=== PATIENT | male | born 1950 | race Caucasian/White ===

== ENCOUNTER 2016-06-02 15:47 | Outpatient (CLI) | payer MEDICARE, OTHER | END 2016-06-02 15:48 | disposition home or self-care (01) | DX: I48.91 Unspecified atrial fibrillation (principal) ==

== ENCOUNTER 2016-06-02 16:35 | Outpatient (CLI) | payer MEDICARE, OTHER ==
[2016-06-02 17:05] LABS: CALCIUM 8.5 mg/dL (8.5-10.3); CREATININE 0.8 mg/dL (0.6-1.2); POTASSIUM 3.9 mmol/L (3.5-5.0)
== END 2016-06-02 16:36 | disposition home or self-care (01) ==
LOC: LAB 16:35
PROVIDERS: ATTEND Internal Medicine Cardiovascular Disease
DX: I48.91 Unspecified atrial fibrillation (principal)
CPT/HCPCS: 36415; 80048

== ENCOUNTER 2017-05-26 07:04 | Outpatient (CLI) | payer MEDICARE, OTHER ==
[2017-05-26 10:51] LABS: BASOPHILS % (AUTO) 0.5 %; EOSINOPHILS # (AUTO) 0.1 10^3/uL (0.0-0.7); EOSINOPHILS % (AUTO) 1.3 %; HGB - HEMOGLOBIN 15.5 g/dL (14.0-18.0); LYMPHOCYTES # (AUTO) 1.8 10^3/uL (1.5-3.5); MEAN CORPUSCULAR HEMOGLOBIN 31.5 pg (27.0-31.0); MEAN CORPUSCULAR HGB CONC 32.8 g/dL (32.0-36.0); MEAN CORPUSCULAR VOLUME 96.1 fL (80.0-94.0); MONOCYTES # (AUTO) 0.6 10^3/uL (0.0-1.0); MONOCYTES % (AUTO) 7.7 %; NEUTROPHILS # (AUTO) 5.7 10^3/uL (1.5-6.6); NEUTROPHILS % (AUTO) 68.5 %; PLT - PLATELET COUNT 198 10^3/uL (130-450); RED BLOOD COUNT 4.92 10^6/uL (4.70-6.10); RED CELL DISTRIBUTION WIDTH 13.5 % (12.0-15.0); WHITE BLOOD COUNT 8.3 x10^3/uL (4.8-10.8)
[2017-05-26 11:06] LABS: ALBUMIN/GLOBULIN RATIO 1.2 (1.0-2.2); ALKALINE PHOSPHATASE 50 IU/L (42-121); ALT ALANINE AMINOTRANSFERASE 22 IU/L (10-60); AST ASPARTATE AMINOTRANSFERASE 25 IU/L (10-42); BILIRUBIN,TOTAL 0.7 mg/dL (0.2-1.0); BUN - BLOOD UREA NITROGEN 16 mg/dL (6-20); CALCIUM 8.8 mg/dL (8.5-10.3); CARBON DIOXIDE - CO2 26 mmol/L (21-32); CHLORIDE 101 mmol/L (101-111); CHOL/HDL RATIO 4.6 (<5.0); CHOLESTEROL 156 mg/dL; CREATININE 0.9 mg/dL (0.6-1.2); GFR - MDRD 84 (>89); GLUCOSE 100 mg/dL (70-100); HDL CHOLESTEROL 34 mg/dL; LDL CHOLESTEROL,CALCULATED 94 mg/dL; LDL/HDL RATIO 2.8 (<3.6); SODIUM 139 mmol/L (135-145); TOTAL PROTEIN 7.3 g/dL (6.7-8.2); VLDL CHOLESTEROL 28 mg/dL
== END 2017-05-26 07:05 | disposition home or self-care (01) ==
LOC: LAB.F 07:04
PROVIDERS: ATTEND Internal Medicine
DX: E55.9 Vitamin D deficiency, unspecified (principal); E78.5 Hyperlipidemia, unspecified; G47.33 Obstructive sleep apnea (adult) (pediatric); I48.91 Unspecified atrial fibrillation
CPT/HCPCS: 36415; 80053; 80061; 82306; 83721; 85025

== ENCOUNTER 2017-07-13 11:25 | Outpatient (CLI) | payer MEDICARE, OTHER | END 2017-07-13 11:26 | disposition home or self-care (01) | LOC: RT 11:25 | PROVIDERS: ATTEND Internal Medicine Cardiovascular Disease | DX: I48.91 Unspecified atrial fibrillation (principal) | CPT/HCPCS: 93005 ==

== ENCOUNTER 2018-04-05 15:21 | Outpatient (CLI) | payer MEDICARE, OTHER | END 2018-04-05 15:22 | disposition home or self-care (01) | LOC: RT 15:21 | PROVIDERS: ATTEND Internal Medicine Cardiovascular Disease | DX: I48.91 Unspecified atrial fibrillation (principal) | CPT/HCPCS: 93005 ==

== ENCOUNTER 2018-07-06 07:53 | Outpatient (CLI) | payer MEDICARE, OTHER ==
[2018-07-06 11:09] LABS: HGB - HEMOGLOBIN 14.7 g/dL (14.0-18.0); MEAN CORPUSCULAR HEMOGLOBIN 31.8 pg (27.0-31.0); MEAN CORPUSCULAR HGB CONC 33.9 g/dL (32.0-36.0); MEAN CORPUSCULAR VOLUME 93.7 fL (80.0-94.0); MEAN PLATELET VOLUME 9.7 fL (7.4-11.4); RED BLOOD COUNT 4.63 10^6/uL (4.70-6.10); RED CELL DISTRIBUTION WIDTH 13.6 % (12.0-15.0); WHITE BLOOD COUNT 6.8 x10^3/uL (4.8-10.8)
[2018-07-06 11:25] LABS: ALBUMIN 3.9 g/dL (3.2-5.5); ALBUMIN/GLOBULIN RATIO 1.3 (1.0-2.2); ALKALINE PHOSPHATASE 55 IU/L (42-121); ALT ALANINE AMINOTRANSFERASE 24 IU/L (10-60); AST ASPARTATE AMINOTRANSFERASE 30 IU/L (10-42); BILIRUBIN,TOTAL 0.7 mg/dL (0.2-1.0); BUN - BLOOD UREA NITROGEN 15 mg/dL (6-20); CHOL/HDL RATIO 4.8 (<5.0); CHOLESTEROL 164 mg/dL; CREATININE 0.8 mg/dL (0.6-1.2); GFR - MDRD 96 (>89); HDL CHOLESTEROL 34 mg/dL; LDL CHOLESTEROL,CALCULATED 112 mg/dL; LDL/HDL RATIO 3.3 (<3.6); VLDL CHOLESTEROL 18 mg/dL
[2018-07-06 12:31] LABS: HEMOGLOBIN A1C 0.6 g/dL; HEMOGLOBIN A1C % 5.6 % (4.6-6.2)
[2018-07-06 13:16] LABS: CALCIUM 8.7 mg/dL (8.5-10.3); CARBON DIOXIDE - CO2 24 mmol/L (21-32); CHLORIDE 108 mmol/L (101-111); GLUCOSE 109 mg/dL (70-100); SODIUM 140 mmol/L (135-145)
== END 2018-07-06 07:54 | disposition home or self-care (01) ==
LOC: LAB.F 07:53
PROVIDERS: ATTEND Internal Medicine
DX: E78.5 Hyperlipidemia, unspecified (principal); E66.9 Obesity, unspecified; I48.91 Unspecified atrial fibrillation
CPT/HCPCS: 36415; 80053; 80061; 83036; 83721; 84443; 85027

== ENCOUNTER 2018-10-04 11:14 | Outpatient (CLI) | payer MEDICARE, OTHER | END 2018-10-04 11:15 | disposition home or self-care (01) | LOC: RT 11:14 | PROVIDERS: ATTEND Internal Medicine Cardiovascular Disease | DX: I48.91 Unspecified atrial fibrillation (principal) | CPT/HCPCS: 93005 ==

== ENCOUNTER 2018-10-18 14:17 | Outpatient (CLI) | payer MEDICARE, OTHER ==
[2018-10-18 17:51] LABS: CALCIUM 8.6 mg/dL (8.5-10.3); CREATININE 0.8 mg/dL (0.6-1.2)
== END 2018-10-18 14:18 | disposition home or self-care (01) ==
LOC: LAB.F 14:17
PROVIDERS: ATTEND Internal Medicine Cardiovascular Disease
DX: I48.91 Unspecified atrial fibrillation (principal)
CPT/HCPCS: 36415; 80048

== ENCOUNTER 2019-04-04 11:20 | Outpatient (CLI) | payer MEDICARE, OTHER | END 2019-04-04 11:21 | disposition home or self-care (01) | LOC: RT 11:20 | PROVIDERS: ATTEND Internal Medicine Cardiovascular Disease | DX: I48.0 Paroxysmal atrial fibrillation (principal) | CPT/HCPCS: 93005 ==

== ENCOUNTER 2019-05-14 07:16 | Outpatient (CLI) | payer MEDICARE, OTHER ==
[2019-05-14 09:55] LABS: BASOPHILS % (AUTO) 0.4 %; EOSINOPHILS # (AUTO) 0.1 10^3/uL (0.0-0.7); EOSINOPHILS % (AUTO) 1.3 %; HGB - HEMOGLOBIN 14.8 g/dL (14.0-18.0); LYMPHOCYTES # (AUTO) 1.5 10^3/uL (1.5-3.5); LYMPHOCYTES % (AUTO) 19.1 %; MEAN CORPUSCULAR HEMOGLOBIN 31.9 pg (27.0-31.0); MEAN CORPUSCULAR HGB CONC 32.8 g/dL (32.0-36.0); MEAN CORPUSCULAR VOLUME 97.2 fL (80.0-94.0); MEAN PLATELET VOLUME 11.4 fL (7.4-11.4); MONOCYTES # (AUTO) 0.7 10^3/uL (0.0-1.0); MONOCYTES % (AUTO) 9.1 %; NEUTROPHILS # (AUTO) 5.3 10^3/uL (1.5-6.6); NEUTROPHILS % (AUTO) 69.6 %; PLT - PLATELET COUNT 204 10^3/uL (130-450); RED BLOOD COUNT 4.64 10^6/uL (4.70-6.10); RED CELL DISTRIBUTION WIDTH 13.2 % (12.0-15.0); WHITE BLOOD COUNT 7.6 x10^3/uL (4.8-10.8)
[2019-05-14 10:19] LABS: BUN - BLOOD UREA NITROGEN 16 mg/dL (6-20); CALCIUM 8.4 mg/dL (8.5-10.3); CARBON DIOXIDE - CO2 24 mmol/L (21-32); CHLORIDE 103 mmol/L (101-111); CHOL/HDL RATIO 5.4 (<5.0); CHOLESTEROL 167 mg/dL; CREATININE 0.9 mg/dL (0.6-1.2); GFR - MDRD 83 (>89); GLUCOSE 110 mg/dL (70-100); HDL CHOLESTEROL 31 mg/dL; LDL CHOLESTEROL,CALCULATED 114 mg/dL; LDL/HDL RATIO 3.7 (<3.6); SODIUM 135 mmol/L (135-145); VLDL CHOLESTEROL 22 mg/dL
== END 2019-05-14 07:17 | disposition home or self-care (01) ==
LOC: LAB.S 07:16
PROVIDERS: ATTEND Internal Medicine Cardiovascular Disease
DX: I48.91 Unspecified atrial fibrillation (principal)
CPT/HCPCS: 36415; 80048; 80061; 83721; 85025

== ENCOUNTER 2019-11-20 07:06 | Outpatient (CLI) | payer MEDICARE, OTHER ==
[2019-11-20 15:16] LABS: BASOPHILS % (AUTO) 0.5 %; EOSINOPHILS # (AUTO) 0.1 10^3/uL (0.0-0.7); EOSINOPHILS % (AUTO) 1.2 %; HGB - HEMOGLOBIN 14.7 g/dL (14.0-18.0); LYMPHOCYTES # (AUTO) 1.6 10^3/uL (1.5-3.5); LYMPHOCYTES % (AUTO) 19.9 %; MEAN CORPUSCULAR HEMOGLOBIN 31.1 pg (27.0-31.0); MEAN CORPUSCULAR HGB CONC 31.3 g/dL (32.0-36.0); MEAN CORPUSCULAR VOLUME 99.4 fL (80.0-94.0); MEAN PLATELET VOLUME 11.6 fL (7.4-11.4); MONOCYTES # (AUTO) 0.5 10^3/uL (0.0-1.0); MONOCYTES % (AUTO) 6.8 %; NEUTROPHILS # (AUTO) 5.6 10^3/uL (1.5-6.6); NEUTROPHILS % (AUTO) 71.2 %; PLT - PLATELET COUNT 211 10^3/uL (130-450); RED BLOOD COUNT 4.73 10^6/uL (4.70-6.10); RED CELL DISTRIBUTION WIDTH 13.4 % (12.0-15.0); WHITE BLOOD COUNT 7.8 x10^3/uL (4.8-10.8)
[2019-11-20 15:44] LABS: ALBUMIN 3.9 g/dL (3.2-5.5); ALBUMIN/GLOBULIN RATIO 1.1 (1.0-2.2); ALKALINE PHOSPHATASE 50 IU/L (42-121); ALT ALANINE AMINOTRANSFERASE 22 IU/L (10-60); AST ASPARTATE AMINOTRANSFERASE 24 IU/L (10-42); BILIRUBIN,TOTAL 0.9 mg/dL (0.2-1.0); BUN - BLOOD UREA NITROGEN 18 mg/dL (6-20); CALCIUM 8.6 mg/dL (8.5-10.3); CARBON DIOXIDE - CO2 26 mmol/L (21-32); CHLORIDE 107 mmol/L (101-111); CHOL/HDL RATIO 4.4 (<5.0); CHOLESTEROL 148 mg/dL; CREATININE 0.8 mg/dL (0.6-1.2); GLUCOSE 115 mg/dL (70-100); HDL CHOLESTEROL 34 mg/dL; LDL CHOLESTEROL,CALCULATED 92 mg/dL; LDL/HDL RATIO 2.7 (<3.6); SODIUM 139 mmol/L (135-145); TOTAL PROTEIN 7.4 g/dL (6.7-8.2); VLDL CHOLESTEROL 22 mg/dL
[2019-11-20 15:58] LABS: HB2 TOTAL 15.9 g/dL; HEMOGLOBIN A1C 0.59 g/dL; HEMOGLOBIN A1C % 5.5 % (4.6-6.2)
== END 2019-11-20 07:07 | disposition home or self-care (01) ==
LOC: LAB.S 07:06
PROVIDERS: ATTEND Internal Medicine
DX: Z00.00 Encounter for general adult medical examination without abnormal findings (principal)
CPT/HCPCS: 36415; 80053; 80061; 83036; 83721; 84443; 85025

== ENCOUNTER 2020-05-28 08:00 | Outpatient (CLI) | payer MEDICARE, OTHER ==
--- NOTE | 2020-05-28 17:23 | XRAY Report ---
PROCEDURE: Ankle 3 View LT INDICATIONS: LEFT ANKLE PAIN TECHNIQUE: 3 views of the ankle were acquired. COMPARISON: None FINDINGS: Bones: Comminuted mildly displaced distal fibular fracture is present. There is a mildly displaced me dial malleoli or fracture. Tibiotalar alignment is within normal limits. Ankle mortise is normally al igned. No suspicious bony lesions. Soft tissues: Ankle edema is present. Achilles tendon appears normal. IMPRESSION: Bimalleolar fracture as above. Reviewed by: Celine Villafuerte MD on 05/28/2020 5:22 PM [facility] Approved by: Celine Villafuerte MD on 05/28/2020 5:22 PM PST Station ID: [id number]
== END 2020-05-28 23:59 | disposition home or self-care (01) ==
LOC: DI.S 08:00
PROVIDERS: ATTEND Physician Assistant Medical
DX: S82.842A Displaced bimalleolar fracture of left lower leg, initial encounter for closed fracture (principal)

== ENCOUNTER 2020-05-29 08:00 | Outpatient (CLI) | payer MEDICARE, OTHER | END 2020-05-29 23:59 | disposition home or self-care (01) | LOC: LAB.R 08:00 | PROVIDERS: ATTEND Orthopaedic Surgery | DX: Z01.818 Encounter for other preprocedural examination (principal); Z20.822 Contact with and (suspected) exposure to COVID-19 ==

== ENCOUNTER 2020-06-03 10:57 | Day surgery (SDC) | payer MEDICARE, OTHER ==
[2020-06-03] MEDS ORDERED: LACTATED RINGERS 1,000 ML IV ONE ×2 (11:02→16:00)
[2020-06-03] MEDS ORDERED: ACETAMINOPHEN 1,000 MG/100 ML 100 ML IV ONE (11:14)
[2020-06-03] MEDS ORDERED: GABAPENTIN 400 MG CAPSULE ONE (11:14)
[2020-06-03] MEDS ORDERED: ceFAZolin 2 GM/50 ML 2 GM/50 ML BAG IV ONE (11:14)
[2020-06-03] MEDS ORDERED: CELECOXIB 100 MG CAPSULE PO ONE (11:14)
--- NOTE | 2020-06-03 11:58 | ANESTHESIA ---
Pre-Anesthesia VS, & Labs - Diagnosis left bimalleolar fracture - Procedure left orif ankle fracture Vital Signs: Temp Pulse Resp BP Pulse Ox 36.6 C 65 12 135/79 H 98 06/03/20 11:05 06/03/20 11:05 06/03/20 11:05 06/03/20 11:05 06/03/20 11:05 Height: 6 ft 3 in Weight (kg): 143.7 kg Body Mass Index: 39.6 BMI Classification: Obese - NPO >8 hours - Lab Results Current Lab Results: Laboratory Tests 06/03/20 11:40: POC Whole Bld Glucose 94 Home Medications and Allergies Home Medications: Ambulatory Orders Ascorbic Acid [Vitamin C] 1,000 mg PO DAILY 06/02/20 Brimonidine Tartrate/Timolol [Combigan 0.2%-0.5% Eye Drops] 1 drops EACHEYE BID 06/02/20 Lactobacillus Acidophilus [Probiotic Acidophilus] 1 each PO DAILY 06/02/20 Doxycycline Monohydrate [Avidoxy] 100 mg PO BID 06/03/20 Cholecalciferol (Vitamin D3) [Vitamin D3] 2,000 intlu ORAL DAILY 02/28/17 Dabigatran Etexilate Mesylate [Pradaxa] 150 mg ORAL BID 02/28/17 Flecainide Acetate 100 mg ORAL BID 02/28/17 Metoprolol Succinate 12.5 mg ORAL DAILY 02/28/17 Pravastatin Sodium 10 mg ORAL DAILY 02/28/17 Ascorbic Acid [Vitamin C] 1,000 mg PO DAILY 06/02/20 Brimonidine Tartrate/Timolol [Combigan 0.2%-0.5% Eye Drops] 1 drops EACHEYE BID 06/02/20 Lactobacillus Acidophilus [Probiotic Acidophilus] 1 each PO DAILY 06/02/20 Doxycycline Monohydrate [Avidoxy] 100 mg PO BID 06/03/20 Allergies/Adverse Reactions: Allergies Allergy/AdvReac Type Severity Reaction Status Date / Time Penicillins Allergy Mild Rash Verified 06/03/20 11:35 Anes History & Medical History - Anesthetic History Anesthesia Complications: reports: No previous complications - Medical History Cardiovascular: reports: High cholesterol, Atrial fibrillation Pulmonary: reports: Sleep apnea (does not use cpap) Gastrointestinal: reports: GERD (occassional and related to diet), Colon polyps Urinary: reports: Frequency Neuro: reports: None Musculoskeletal: reports: None Endocrine/Autoimmune: reports: None Blood Disorders: reports: None Skin: reports: Other Smoking Status: Never smoker Psychosocial: reports: No issues indicated History of Cancer?: Yes (basal cell) - Surgical History General: Colonoscopy Eyes Ears Nose Throat (EENT): Cataracts, Detached retina repair, Tonsil/Adenoidectomy Cardiothoracic: Other Dermatologic: Skin cancer surgery Exam General: Alert, Oriented x3, Cooperative, No acute distress Dental: WNL Mouth Openin Fingerbreadth Neck Mobility: Normal Mallampati classification: II Thyromental Distance: 4-6 cm Mental/Cognitive Status: Alert/Oriented X3, Normal for patient Plan Anesthesia Type: General, Sciatic Nerve Block (left), Adductor Block (left) Consent for Procedure(s) Verified and Reviewed: Yes Code Status: Attempt Resuscitation ASA classification: 3-Severe systemic disease Is this case an emergency?: No
[2020-06-03] MEDS ORDERED: BACITRACIN ZINC OINT 1 PACKET TOP ONE ×2 (12:24→13:56)
[2020-06-03] MEDS ORDERED: MIDAZOLAM 2 MG/2 ML VIAL ONE (12:24)
[2020-06-03] MEDS ORDERED: ROPIVACAINE 0.5% PF 20 ML AMPULE ONE ×3 (12:24→15:21)
[2020-06-03] MEDS ORDERED: DEXAMETHASONE 4 MG/ML VIAL ONE (12:29)
[2020-06-03] MEDS ORDERED: PROPOFOL 200 MG/20 ML VIAL IVP ONE (12:42)
[2020-06-03] MEDS ORDERED: LIDOCAINE-MPF 2% 5 ML VIAL ONE (12:43)
[2020-06-03] MEDS ORDERED: ROCURONIUM 50 MG/5 ML VIAL ONE (12:45)
[2020-06-03] MEDS ORDERED: fentaNYL 100 MCG/2 ML VIAL ONE (12:46)
[2020-06-03] MEDS ORDERED: HYDROmorphone 0.5 MG/0.5 ML SYRINGE IVP PRN (12:51)
[2020-06-03] MEDS ORDERED: MORPHINE 2 MG/ML CARPUJECT IVP PRN (12:51)
[2020-06-03] MEDS ORDERED: fentaNYL 100 MCG/2 ML VIAL IVP PRN (12:51)
[2020-06-03] MEDS ORDERED: NALOXONE 0.4 MG/ML VIAL IVP PRN (12:51)
[2020-06-03] MEDS ORDERED: ONDANSETRON 4 MG/2 ML VIAL IVP PRN (12:51)
[2020-06-03] MEDS ORDERED: ATROPINE ABBOJECT 1 MG/10 ML SYRINGE IVP PRN (12:51)
[2020-06-03] MEDS ORDERED: LACTATED RINGERS 1,000 ML IV SCH (13:00)
[2020-06-03] MEDS ORDERED: ceFAZolin 1 GM VIAL ONE (13:20)
[2020-06-03] MEDS ORDERED: ePHEDrine 50 MG/ML VIAL IVP ONE (13:26)
[2020-06-03] MEDS ORDERED: ONDANSETRON 4 MG/2 ML VIAL ONE (15:32)
--- NOTE | 2020-06-03 15:33 | OPERATIVE REPORT ---
Operative Report - General Procedure Date: 06/03/20 Planned Procedure: Open reduction internal fixation left ankle Pre-Op Diagnosis: Displaced bimalleolar fracture left ankle Procedure Performed: Open reduction internal fixation lateral malleolus left ankle with Acumed fibular payton: 3 mm x 145 mm payton with 2 distal screws and 1 syndesmosis screw Post Op Diagnosis: Same as the preoperative diagnosis - Procedure Note Primary Surgeon: Abner Mitchell MD Secondary Surgeon: Laz HUDSON Anesthesia Provider: Adriana Jimenes CRNA Anesthesia Technique: General ET tube, Regional block Estimated Blood Loss (mL): 50 Indications: This is a very large man weighing proximally 140 kg with a BMI of almost 40 who took a fall and sustained an isolated injury to left ankle. He had localized pain, limited and painful motion left ankle, swelling and some ecchymosis about the ankle and x-rays which showed a bimalleolar type of fracture. The medial malleolus was an avulsion fracture consisting of a very small chip of bone and the lateral malleolar fracture was oblique fracture beginning at and just above the ankle mortise. There was mild subluxation of the talus. Does have absence of hair, atrophy of skin but satisfactory pulses and circulation. He does have some evidence of chronic peripheral vascular disease. To avoid problems with wound complications and infection, a more minimal surgical approach was done with the fibular payton Findings: This is a Saba B fracture of the left ankle involving the lateral and medial malleoli Complications: None - Other Other Information/Narrative: The patient was brought to the operating room and given general endotracheal anesthetic. A popliteal block had been given prior to coming into the operating room.. He was placed in a supine position with the leg on bone foam. A thick blanket was placed beneath the left buttock to internally rotate left leg. The left lower extremity was prepped and draped in a sterile manner in the usual fashion. A timeout procedure was performed by the entire operating room team and all were in agreement. A C arm was utilized intermittently throughout the procedure with a sterile drape. A 2-1/2 cm incision was made below the lateral malleolus. The entry point was developed with a 0.062 inch K wire. In the starting point was somewhat difficult to obtain because of the swelling and the size of the patient's foot and ankle. A longer K wire was utilized which allowed me to engage the lateral malleolus in both AP and lateral views. The canal was prepared using a 6.1 cannulated drill bit and then a 3.1 mm reamer the fibular payton was assembled on the back table. 3 mm diameter by 145 mm in length. This was placed in the previous opening in the tip of the lateral malleolus and advanced proximally until it was countersunk. The payton and guide were rotated approximately 25 degrees and 2 screws were placed from anterior to posterior in the distal fragment using the C-arm image intensifier. Care was taken to avoid overpenetration of the posterior cortex to avoid the peroneal tendons. There were 2 syndesmosis holes and the distal syndesmosis hole was right at the fracture site. Therefore, the proximal syndesmosis hole was utilized and a tricortical screw was inserted measuring approximately 50 mm. Before the syndesmosis screw had been inserted, fracture reduction was performed with some traction and internal rotation. There was satisfactory alignment to the ankle mortise the fracture aligned satisfactorily but not cortex the cortex. There was slight offset to the lateral malleolar fracture site. The ankle mortise was stable. The surgical incision was irrigated. The subcutaneous tissue to the distalmost incision was closed with 2-0 Vicryl and 3 oh strata fix subcuticular suture. The the additional incisions were closed with strata fix suture as well. Xeroform, sterile gauze several layers of cast padding and a plaster stirrup to hold ankle neutral dorsiflexion was applied. This was a well-padded splint for nonweightbearing. A physician chef's assistant was utilized to facilitate reduction and insertion of internal fixation. He also applied the splint and helped with wound closure. 3 g of Ancef were given intravenously prior to the incision and he tolerated procedure well
[2020-06-03] MEDS ORDERED: HYDROcod/ACETAM 5/325 MG TABLET PO PRN (15:57)
[2020-06-03] MEDS ORDERED: HYDROcod/ACETAM 10 MG/325 MG TABLET PO PRN (15:57)
--- NOTE | 2020-06-03 16:41 | XRAY Report ---
PROCEDURE: OR C-Arm Procedure INDICATIONS: left ankle fx TECHNIQUE: COMPARISON: Prior acute trauma plain films of the ankle 05/28/2020 reviewed.. FINDINGS: The current study shows 3 operative views rotating on the traversing the medullary payton and the fracture of the distal fibula from the ankle joint level distally. Anatomic alignment is establis hed. IMPRESSION: Intraoperative imaging showing a medullary payton and 3 fixation screws traversing both the proximal and distal aspect of the distal fibula centered on the fracture plane. Anatomic alignment visualized, po stoperative imaging is anticipated. Reviewed by: Mitchel Rodríguez MD on 06/03/2020 4:39 PM PST Approved by: Mitchel Rodríguez MD on 06/03/2020 4:39 PM PST Station ID: [id number]
[2020-06-03 16:44] VITALS: BP 102/82
--- NOTE | 2020-06-03 19:18 | ANESTHESIA POST OP EVALUATION ---
Anesthesia Post Eval - Post Anesthesia Eval Vitals: Last Vital Signs Temp 37.2 C 06/03/20 16:43 Pulse 71 06/03/20 16:43 Resp 18 06/03/20 16:43 BP 102/82 H 06/03/20 16:43 Pulse Ox 94 06/03/20 16:43 CV Function Including HR & BP: positive: Stable Pain Control: positive: Satisfactory Nausea & Vomiting: positive: Negative Mental Status: positive: Baseline Respiratory Status: Airway Patent Hydration Status: Satisfactory Anesthesia Complications: positive: None
== END 2020-06-03 10:58 | disposition home or self-care (01) ==
LOC: SDS 10:57
PROVIDERS: ATTEND Orthopaedic Surgery
DX: S82.842A Displaced bimalleolar fracture of left lower leg, initial encounter for closed fracture (principal); I73.89 Other specified peripheral vascular diseases; I48.91 Unspecified atrial fibrillation; Z79.01 Long term (current) use of anticoagulants; G47.30 Sleep apnea, unspecified; E66.9 Obesity, unspecified; Z68.39 Body mass index [BMI] 39.0-39.9, adult
CPT/HCPCS: 27814; A9270; C1713; J0131; J0690; J7120

== ENCOUNTER 2020-07-24 07:17 | Outpatient (CLI) | payer MEDICARE, OTHER ==
--- NOTE | 2020-07-24 16:07 | XRAY Report ---
PROCEDURE: Ankle 3 View LT INDICATIONS: DISPLACED BIMALLLEOLAR FRACTURE TECHNIQUE: 3 views of the ankle were acquired. COMPARISON: 05.28.20 plain film examination FINDINGS: Bones: ORIF of the distal fibula. Syndesmotic screw is present. Alignment is grossly anatomic. Ankle mortise is normally aligned. No suspicious bony lesions. Soft tissues: No tibiotalar joint effusion. Achilles tendon appears normal. IMPRESSION: Postsurgical sequelae. Reviewed by: Nasrin Golden MD on 07/24/2020 4:05 PM PDT Approved by: Nasrin Golden MD on 07/24/2020 4:05 PM PDT Station ID: [id number]
== END 2020-07-24 23:59 | disposition home or self-care (01) ==
LOC: DI.N 07:17
PROVIDERS: ATTEND Physician Assistant
DX: S82.842A Displaced bimalleolar fracture of left lower leg, initial encounter for closed fracture (principal)

== ENCOUNTER 2020-12-31 11:20 | Outpatient (CLI) | payer MEDICARE, OTHER | END 2020-12-31 11:21 | disposition home or self-care (01) | LOC: RT 11:20 | PROVIDERS: ATTEND Internal Medicine Cardiovascular Disease | DX: I50.9 Heart failure, unspecified (principal); I48.91 Unspecified atrial fibrillation | CPT/HCPCS: 93005 ==

== ENCOUNTER 2021-08-09 08:00 | Outpatient (CLI) | payer MEDICARE, OTHER ==
[2021-08-09 20:12] LABS: BASOPHILS % (AUTO) 0.4 %; EOSINOPHILS # (AUTO) 0.1 10^3/uL (0.0-0.7); HCT - HEMATOCRIT 43.7 % (42.0-52.0); HGB - HEMOGLOBIN 14.6 g/dL (14.0-18.0); LYMPHOCYTES # (AUTO) 2.2 10^3/uL (1.5-3.5); MEAN CORPUSCULAR HGB CONC 33.4 g/dL (32.0-36.0); MEAN CORPUSCULAR VOLUME 95.8 fL (80.0-94.0); MEAN PLATELET VOLUME 11.8 fL (7.4-11.4); MONOCYTES # (AUTO) 0.5 10^3/uL (0.0-1.0); MONOCYTES % (AUTO) 6.3 %; NEUTROPHILS # (AUTO) 4.8 10^3/uL (1.5-6.6); PLT - PLATELET COUNT 196 10^3/uL (130-450); RED BLOOD COUNT 4.56 10^6/uL (4.70-6.10); RED CELL DISTRIBUTION WIDTH 13.2 % (12.0-15.0); WHITE BLOOD COUNT 7.6 x10^3/uL (4.8-10.8)
[2021-08-09 20:41] LABS: ALBUMIN 3.9 g/dL (3.2-5.5); ALBUMIN/GLOBULIN RATIO 1.2 (1.0-2.2); BILIRUBIN,TOTAL 0.5 mg/dL (0.2-1.0); CALCIUM 8.7 mg/dL (8.5-10.3); CREATININE 1.1 mg/dL (0.6-1.2); POTASSIUM 4.3 mmol/L (3.5-5.0); TOTAL PROTEIN 7.1 g/dL (6.7-8.2)
[2021-08-09 20:57] LABS: THYROID STIMULATING HORMONE 1.93 uIU/mL (0.34-5.60)
== END 2021-08-09 08:01 | disposition home or self-care (01) ==
LOC: LAB.S 08:00
PROVIDERS: ATTEND Registered Nurse
DX: I48.91 Unspecified atrial fibrillation (principal); R00.1 Bradycardia, unspecified
CPT/HCPCS: 36415; 80053; 84443; 85025